=== PATIENT | female | born 1990 | race African-American/Black ===

== ENCOUNTER 2016-12-06 20:05 | Emergency (ER) | payer SELFPAY ==
[~2016-12-06] VITALS: Ht 160 cm; Wt 58.2 kg
[2016-12-06 20:34] VITALS: BP 112/78
[2016-12-06] MEDS ORDERED: PROP10 PO (20:41)
== END 2016-12-06 21:28 | disposition left against medical advice (07) ==
LOC: EMS 20:10
DX: R55 Syncope and collapse (principal); Z53.21 Procedure and treatment not carried out due to patient leaving prior to being seen by health care provider
CPT/HCPCS: 93005